=== PATIENT | male | born 1990 | race Caucasian/White ===

== ENCOUNTER 2020-01-28 19:33 | Emergency (ER) | payer BC, SELFPAY ==
[2020-01-28 19:35] VITALS: BP 146/93; PULSE 101; RESP 16; TEMP 36.7; O2SAT 98; BMI 19.8
--- NOTE | 2020-01-28 19:46 | ED.VIS.GEN ---
History of Present Illness Chief Complaint: Laceration Informant: Patient Onset: Today Current Severity: Mild Maximum Severity: Moderate Narrative: Patient presents secondary to laceration of the right third finger. He was chopping wood when he cut the very end of his right third finger off. He is left-hand dominant. Tetanus is up-to-date. Past Medical History - Allergies and Home Meds Allergies/Adverse Reactions: Allergies No Known Allergies Allergy (Verified 01/28/20 19:37) Past Medical History: None Lives: With Family Review of Systems General: Denies: Chills, Fever Eyes: Denies: Visual changes - bilaterally ENT: Denies: Bilateral ear pain Cardiovascular: Denies: Chest pain Respiratory: Denies: Dyspnea, Cough Gastrointestinal: Denies: Abdominal pain, Nausea, Vomiting, Diarrhea Musculoskeletal: Reports: Extremity Pain Skin: Reports: Wounds Hematologic: Denies: Easy bruising, Easy bleeding Allergy: Denies: Uticaria Physical Exam Vital Signs/Narrative: Vital Signs Temp Pulse Resp BP Pulse Ox 01/28/20 19:35 98.1 F 101 H 16 146/93 H 98 Inital Vital Signs reviewed: Yes General: Well nourished, Well developed Head: Normocephalic ENT: Moist mucous membranes Neck: Supple Cardiovascular: Regular rate, Regular rhythm Respiratory: No distress, CTA bilaterally Extremities: - - Skin avulsion to the very distal tip of the right third finger. Distal aspect of the nail is involved. Mild bleeding noted. No visualized bone. Skin: Trauma Neurological: Alert, Oriented x3, Normal Strength, Normal Sensation Psychological: Normal affect Diagnostic/Tx/Re-eval Impressions Finger X-Ray 01/28/20 20:00 IMPRESSION: No fractures or dislocations. No radiopaque foreign bodies. Application of the tip of the soft tissues. Electronically Signed: Oj Wyman MD at 20:33 EDT , Service support , 01/28/20 20:00 Xray Finger [Finger(s) Min 2 Views] [RAD] Stat - Medical Decision Making Digital block was performed with 3 cc of 1% lidocaine. Patient received good anesthesia. Wound was cleansed. This is a large, superficial avulsion injury not amenable to suture. Surgifoam and pressure dressing were applied. On 2 different checks patient has not had further bleeding through the dressing. He is instructed on wound care. He was advised that the area will scab over and heal. He is comfortable with this plan. ED Disposition - Plan for ED Patient: Disposition: Home or Assisted Living Diagnosis: Avulsion of skin of finger Instructions: ED AVULSION LACERATION Referrals: Shamika Perez MD [STAFF PHYSICIAN] - 5-7 Days
--- NOTE | 2020-01-28 20:00 | RAD_ITS ---
STUDY: X-RAY - RIGHT HAND, ATTENTION THIRD FINGER REASON FOR EXAM: Male, 29 years old. Injury. TECHNIQUE: 3 view(s) of the finger were obtained. COMPARISON: None. FINDINGS: There has been amputation of the soft tissues of the tip of the third digit. Normal appearance of the bones and joints. No radiopaque foreign bodies are seen. Normal metacarpal head. Normal metacarpophalangeal joint. Normal proximal phalanx. Normal middle phalanx. Normal distal phalanx. Normal proximal interphalangeal joint. Normal distal interphalangeal joint. RAD/Finger(s) Min 2 Views IMPRESSION: No fractures or dislocations. No radiopaque foreign bodies. Application of the tip of the soft tissues. Electronically Signed: Oj Wyman MD at 20:33 EDT , Service support ,
[2020-01-28 21:58] VITALS: BP 136/90; RESP 17
== END 2020-01-28 21:59 | disposition home or self-care (01) ==
PROVIDERS: Emergency Provider Emergency Medicine
DX: S61.312A Laceration without foreign body of right middle finger with damage to nail, initial encounter (principal); W26.9XXA Contact with unspecified sharp object(s), initial encounter; Y93.89 Activity, other specified; Y92.9 Unspecified place or not applicable
CPT/HCPCS: 73140; 99283